=== PATIENT | male | born 1960 | race Caucasian/White ===

== ENCOUNTER 2018-10-07 14:01 | Day surgery (SDC) | payer OTHER, SELFPAY ==
[2018-10-05 12:58] VITALS: BMI 21.7
[2018-10-07] VITALS (7 sets, daily range): BP systolic 103–136; BP diastolic 65–87; PULSE 58–75; RESP 10–20; TEMP 36.3–37; O2SAT 93–98; BMI 21.7
[2018-10-07] MEDS: LACTATED RINGERS 1,000 ML 100 ML IV (14:46)
[2018-10-07] MEDS: CEFAZOLIN 2 GM/100 ML FROZ.PIGGY IV (14:55)
--- NOTE | 2018-10-07 15:06 | PM.PREOP ---
Pre-operative Note Interval Note History & Physical reviewed/Exam performed by Physician: Yes Changes to H&P: No
--- NOTE | 2018-10-07 15:27 | SUR.OPER ---
Supine on padded OR bed, head on pillow, arms secured on padded arm boards at <90 degrees abduction, legs uncrossed, safety belt at thigh, tape over blanket over lower legs.
[2018-10-07] MEDS: BUPIVACAINE 0.5% (PF) VIAL 30 ML INJ (15:35)
--- NOTE | 2018-10-07 16:18 | P.OP_ITS ---
Operative Date/Time/Diagnoses Date of procedure: 10/07/18 Time of procedure: 16:13 Pre-op diagnosis: Left inguinal hernia reducible Post-op diagnosis: same (Principally an indirect hernia) Procedure & Clinicians Procedure: Plug and patch repair of left inguinal hernia Same procedure as scheduled: Yes Indications: Symptomatic left inguinal hernia Surgeon: Sherif Lopez Anesthesia Type: General Operative Notes Findings: Large indirect sac Closure Type: primary Specimen(s): none sent Prosthetic devices, grafts, tissues, transplants, or devices: Mesh Estimated Blood Loss (mL): 5 Blood products transfused: none Procedure in detail: The patient was placed supine on the operating room table and underwent general LMA anesthesia. He was prepped and draped in the usual fashion. A transverse incision was made overlying the internal ring and carried down to the level of the external oblique. The external oblique was opened parallel with its fibers through the external ring. The cord structures were elevated. The cremaster was opened proximally and search made for an indirect sac. Large sac was identified and from surrounding structures. It was dissected proximal the level of the deep epigastric vessels. The sac was opened and found to have no contents. It was suture ligated with a 2 0 silk at the level of the deep epigastric vessels. The distal portion was removed and the stump allowed to retract.. The floor was examined and was found to be mildly weakened. A medium plug was placed in the defect created by the hernia sac. It was tacked into place with interrupted 0 Ethibond suture.. A patch was placed across the floor and tacked at the pubic tubercle, the posterior lamella of the anterior rectus sheath, the ilioinguinal ligament, and superior lateral to the cord. The opening was modified as necessary to prevent tight constriction of the cord. Sutures of 0 Ethibond were used to secure the mesh. The external oblique was closed with a running 3 0 Vicryl. The subcu was closed with interr upted 3 0 Vicryl. The skin was closed with a running 4 0 Vicryl subcuticular stitch and Steri-Strips. Dressing was applied, the patient was awakened, and the patient was taken to the recovery area in good condition. Complications: none Condition: stable Disposition: PACU Plan for aftercare: Follow-up in the office
[2018-10-07] MEDS: fentaNYL 100 MCG/2 ML INJ 50 MCG IV ×2 (16:30→16:42)
[2018-10-07] MEDS: OXYCODONE/ACETAMINOPHEN 5/325 TABLET 1 TAB PO (16:52)
== END 2018-10-07 17:13 | disposition home or self-care (01) ==
PROVIDERS: PCP Family Medicine Geriatric Medicine; Visit Provider Specialist
PROC: (CPT 49505; principal; 2018-10-07 15:15)
DX: K40.90 Unilateral inguinal hernia, without obstruction or gangrene, not specified as recurrent (principal); F17.210 Nicotine dependence, cigarettes, uncomplicated; X50.0XXA Overexertion from strenuous movement or load, initial encounter
CPT/HCPCS: 49505; C1781; J0690; J1100; J1885; J2250; J2704; J3010